=== PATIENT | male | born 1970 | race Caucasian/White ===

== ENCOUNTER → 2021-03-14 08:10 | Outpatient (BNVA) | payer OTHER, SELFPAY | PROVIDERS: PCP Nurse Practitioner Family; Visit Provider Anesthesiology Pain Medicine | DX: G89.29 Other chronic pain (principal); M54.41 Lumbago with sciatica, right side; M54.9 Dorsalgia, unspecified; F31.9 Bipolar disorder, unspecified; F41.1 Generalized anxiety disorder; F43.10 Post-traumatic stress disorder, unspecified; F17.210 Nicotine dependence, cigarettes, uncomplicated | CPT/HCPCS: 99205 ==

== ENCOUNTER → 2021-03-29 10:19 | Outpatient (BNVA) | payer OTHER, SELFPAY | PROVIDERS: PCP Nurse Practitioner Family; Visit Provider Anesthesiology Pain Medicine | DX: G89.29 Other chronic pain (principal); M54.41 Lumbago with sciatica, right side; M54.9 Dorsalgia, unspecified; F31.9 Bipolar disorder, unspecified; F41.1 Generalized anxiety disorder; F43.10 Post-traumatic stress disorder, unspecified; F17.210 Nicotine dependence, cigarettes, uncomplicated | CPT/HCPCS: 99214 ==

== ENCOUNTER → 2021-04-19 14:56 | Outpatient (BNVA) | payer OTHER, SELFPAY | PROVIDERS: PCP Nurse Practitioner Family; Visit Provider Anesthesiology Pain Medicine | DX: G89.29 Other chronic pain (principal); M47.816 Spondylosis without myelopathy or radiculopathy, lumbar region; Z79.891 Long term (current) use of opiate analgesic; F17.210 Nicotine dependence, cigarettes, uncomplicated | CPT/HCPCS: 64493; 64494; 64495; J3490 ==

== ENCOUNTER 2021-09-06 10:29 | Inpatient (IN) | payer OTHER, SELFPAY ==
[2021-09-06 10:34] VITALS: BP 141/83; PULSE 67; RESP 17; TEMP 37.1; O2SAT 96; BMI 22.1
--- NOTE | 2021-09-06 10:48 | W.ED.PSYCHS ---
Documented by User: RAMÓN Kruger 09/06/21 12:07 HPI - Psych General: Chief Complaint: Psychiatric Symptoms Stated Complaint: SI Time Seen by Provider: 09/06/21 10:33 Source: patient Limitations: no limitations History of Present Illness: HPI Narrative: Patient is a 51-year-old male who presents to ED today with a complaint of acute on chronic suicidal ideations. Patient tells me he has felt suicidal pretty much his whole life. He states over the past several days he feels like these symptoms have been worsening. He states if he had the money and the means he would take a gun and put it in his mouth and blow his head off. Patient states he has actively thought of other suicide methods including jumping off a bridge and overdosing but states knowing my luck I would end up paralyzed or a tube down my throat and still alive . Patient does have services through [facility] and sees Dr. Terrazas for his psychiatrist. He states he has diagnoses of depression, anxiety, bipolar. MD complaint: suicidal ideation and feels depressed Onset (ago): day(s) Duration: constant History of same: Yes Associated psychiatric symptoms: depression and suicidal ideation Associated symptoms: Reports depression and suicidal ideation Treatments prior to arrival: none If self harm: admits thoughts of self harm Review of Systems Const: Denies: fever(s) or chills Card: Denies: chest pain, palpitations, lightheadedness or syncope Resp: Denies: dyspnea GI: Denies: abdominal pain, nausea, vomiting or diarrhea Skin/Breast: Denies: rash Neuro: Denies: headache(s) Psych: Reports: anxiety, depression and suicidal ideation [facility] ED PFSH: Medical History Bipolar affective disorder Chronic low back pain Generalized anxiety disorder Psychiatric care PTSD (post-traumatic stress disorder) Family History Mother No known health problems Social History (Updated 06/22/21 @ 08:51 by Jose Roca LPN) Smoking and tobacco status: current every day smoker cigarettes Packs smoked per day: 0.5 Years cigarettes smoked: 35 Quit status (tobacco): has tried quititng Number of times tried to quit tobacco: 5 Second hand smoke exposure: Yes Alcohol intake: never History of recent travel: No Physical Exam Const: COMMON NORMALS: no acute distress, patient oriented x3, alert and well nourished GENERAL APPEARANCE: cooperative and well kempt Resp: COMMON NORMALS: normal respiratory effort and clear to auscultation bilaterally AUSCULTATION: clear to auscultation bilaterally Cardio: COMMON NORMALS: regular rate and regular rhythm RATE: regular rate RHYTHM: regular rhythm Neuro: COMMON NORMALS: patient oriented x3 SENSORIUM/ORIENTATION: Yes alert Psych: COMMON NORMALS: mental status grossly normal, Normal thought process present, cooperative, normal affect, speech normal, activity/motor behavior normal, denies hallucinations and denies homicidal ideation APPEARANCE: Yes grossly normal and Yes well kempt ATTITUDE: Yes calm ACTIVITY/MOTOR BEHAVIOR: Yes appropriate eye contact and No psychomotor agitation SPEECH: Yes normal speech MOOD & AFFECT: Yes euthymic mood THOUGHT PROCESS: Normal thought process present THOUGHT CONTENT: Yes Normal thought content present ATTENTION/CONCENTRATION: Yes attention grossly intact and Yes concentration grossly intact MEMORY/COGNITION: Yes memory grossly intact and Yes cognition grossly intact INSIGHT: Good insight present (Psych) JUDGEMENT: Good judgement present (Psych) Course Consultations: Consultation #1: Dr. Peterson-accepts to NPU Vital Signs: Vital signs: Vital Signs Temperature 98.1 F 09/07/21 22:00 Pulse Rate 98 09/08/21 06:00 Respiratory Rate 16 09/08/21 06:00 Blood Pressure 104/68 09/08/21 06:00 Pulse Oximetry 94 09/08/21 06:00 MDM - Psych Lab Data: Labs: Lab Results 09/06/21 09/06/21 09/06/21 10:50 10:50 11:35 WBC 11.0 10^3/uL H 10 ^3/uL (4.0-10.0) RBC 5.45 10^6/uL H 10 ^6/uL (4.1-5.3) Hgb 14.4 g/dL g/dL (11.7-16.6) Hct 43.9 % % (42.0-52.0) MCV 80.6 fl fl (80-94) MCH 26.4 pg L pg (28.0-34.0) MCHC 32.8 g/dL g/dL (30.0-36.0) RDW 15.1 % % (12.1-15.1) Plt Count 305 10^3/cmm 10^3 /cmm (130-400) MPV 10.5 fL H fL (7.4-10.4) Neut % (Auto) 53.7 % % Lymph % (Auto) 30.4 % % [place] % (Auto) 7.2 % % Eos % (Auto) 7.3 % % Baso % (Auto) 0.9 % % Neut # (Auto) 5.90 10^3/uL 10^3 /uL (1.8-7.7) Lymph # (Auto) 3.3 10^3/uL 10^3/ uL (0.8-4.8) [place] # (Auto) 0.8 10^3/uL 10^3/ uL (0.2-0.9) Eos # (Auto) 0.8 10^3/uL 10^3/ uL (0.0-0.8) Baso # (Auto) 0.1 10^3/uL 10^3/ uL (0.0-0.1) Nucleated RBC % (a uto) 0 % % Nucleated RBCs # 0.0 /100WBC /100W BC Sodium 139 mmol/L mmol/L (136-145) Potassium 4.1 mmol/L mmol/L (3.5-5.1) Chloride 104 mmol/L mmol/L (98-107) Carbon Dioxide 22 mmol/L mmol/L (22-29) Anion Gap 17.1 (5-19) BUN 11 mg/dL mg/dL (6-20) Creatinine 0.8 mg/dL mg/dL (0.7-1.2) GFR Calculation 102.7 mL/min mL/m in (90-130) Glucose 104 mg/dL mg/dL (65-115) Calculated Osmolal ity 288 mOsm/kg mOsm/ kg (285-295) Calcium 8.9 mg/dL mg/dL (8.5-10.5) Total Bilirubin 0.2 mg/dL mg/dL (0.15-1.2) AST 18 U/L U/L (0-40) ALT 22 U/L U/L (0-41) Alkaline Phosphata se 96 IU/L IU/L (40-130) Total Protein 6.7 g/dL g/dL (6.6-8.7) Albumin 4.2 g/dL g/dL (3.5-5.2) Globulin 2.5 g/dL g/dL (1.3-4.6) Salicylates < 0.3 mg/dL L mg/ dL (3-10) Urine Opiates Scre en Negative ng/mL ng /mL (Negative) Acetaminophen < 5.0 ug/mL L ug/ mL (10-30) Ur Barbiturates Sc reen Positive ng/mL H ng/mL (Negative) Ur Phencyclidine S crn Negative ng/mL ng /mL (Negative) Ur Amphetamines Sc reen Negative ng/mL ng /mL (Negative) U Benzodiazepines Scrn Negative ng/mL ng /mL (Negative) Urine Cocaine Scre en Negative ng/mL ng /mL (Negative) U Marijuana (THC) Screen Negative ng/mL ng /mL (Negative) Ethyl Alcohol < 10 mg/dL mg/dL (0-10) Discharge Plan Discharge Patient Disposition: Admitted As Inpatient Admit Provider: Gregorio Peterson Clinical Impression: Suicidal ideation, Depression Condition: Stable Coding Level of Care Code ED Sas Statistical Programmer for Chg Fwd Exam Expanded Problem Focused Documented by User: Jose Alejandro Garcia DO 09/08/21 10:07 HPI - Psych General: Chief Complaint: Psychiatric Symptoms Stated Complaint: SI Time Seen by Provider: 09/06/21 10:33 History of Present Illness: HPI Narrative: Patient seen and reviewed history. Patient still expresses suicidal ideation directly to myself. States he is very depressed. Expresses suicidal ideation of jumping off a bridge. PFSH ED PFSH: Medical History Bipolar affective disorder Chronic low back pain Generalized anxiety disorder Psychiatric care PTSD (post-traumatic stress disorder) Family History Mother No known health problems Social History (Updated 06/22/21 @ 08:51 by Jose Roca LPN) Smoking and tobacco status: current every day smoker cigarettes Packs smoked per day: 0.5 Years cigarettes smoked: 35 Quit status (tobacco): has tried quititng Number of times tried to quit tobacco: 5 Second hand smoke exposure: Yes Alcohol intake: never History of recent travel: No Physical Exam Const: COMMON NORMALS: no acute distress GENERAL APPEARANCE: cooperative and comfortable HENMT: COMMON NORMALS: normocephalic, atraumatic and hearing grossly normal bilaterally HEAD & SCALP: normocephalic and atraumatic Neck/C-Spine: COMMON NORMALS: no JVD Resp: COMMON NORMALS: normal respiratory effort, No retractions, No use of accessory muscles and clear to auscultation bilaterally AUSCULTATION: clear to auscultation bilaterally Cardio: COMMON NORMALS: no JVD, regular rate, regular rhythm and No murmurs present (Cardio) RATE: regular rate RHYTHM: regular rhythm Extremity: COMMON NORMALS: normal to inspection, capillary refill normal, no clubbing, cyanosis or edema, no calf tenderness and no pedal edema Skin: COMMON NORMALS: no rashes or lesions noted GENERAL SKIN EXAM: no rashes or lesions noted Course Vital Signs: Vital signs: Vital Signs Temperature 98.1 F 09/07/21 22:00 Pulse Rate 98 09/08/21 06:00 Respiratory Rate 16 09/08/21 06:00 Blood Pressure 104/68 09/08/21 06:00 Pulse Oximetry 94 09/08/21 06:00 MDM - Psych MDM Narrative: Medical decision making narrative: Chart reviewed and patient discussed with midlevel. Agree with assessment and plan. Lab Data: Labs: Lab Results 09/06/21 09/06/21 09/06/21 10:50 10:50 11:35 WBC 11.0 10^3/uL H 10 ^3/uL (4.0-10.0) RBC 5.45 10^6/uL H 10 ^6/uL (4.1-5.3) Hgb 14.4 g/dL g/dL (11.7-16.6) Hct 43.9 % % (42.0-52.0) MCV 80.6 fl fl (80-94) MCH 26.4 pg L pg (28.0-34.0) MCHC 32.8 g/dL g/dL (30.0-36.0) RDW 15.1 % % (12.1-15.1) Plt Count 305 10^3/cmm 10^3 /cmm (130-400) MPV 10.5 fL H fL (7.4-10.4) Neut % (Auto) 53.7 % % Lymph % (Auto) 30.4 % % [place] % (Auto) 7.2 % % Eos % (Auto) 7.3 % % Baso % (Auto) 0.9 % % Neut # (Auto) 5.90 10^3/uL 10^3 /uL (1.8-7.7) Lymph # (Auto) 3.3 10^3/uL 10^3/ uL (0.8-4.8) [place] # (Auto) 0.8 10^3/uL 10^3/ uL (0.2-0.9) Eos # (Auto) 0.8 10^3/uL 10^3/ uL (0.0-0.8) Baso # (Auto) 0.1 10^3/uL 10^3/ uL (0.0-0.1) Nucleated RBC % (a uto) 0 % % Nucleated RBCs # 0.0 /100WBC /100W BC Sodium 139 mmol/L mmol/L (136-145) Potassium 4.1 mmol/L mmol/L (3.5-5.1) Chloride 104 mmol/L mmol/L (98-107) Carbon Dioxide 22 mmol/L mmol/L (22-29) Anion Gap 17.1 (5-19) BUN 11 mg/dL mg/dL (6-20) Creatinine 0.8 mg/dL mg/dL (0.7-1.2) GFR Calculation 102.7 mL/min mL/m in (90-130) Glucose 104 mg/dL mg/dL (65-115) Calculated Osmolal ity 288 mOsm/kg mOsm/ kg (285-295) Calcium 8.9 mg/dL mg/dL (8.5-10.5) Total Bilirubin 0.2 mg/dL mg/dL (0.15-1.2) AST 18 U/L U/L (0-40) ALT 22 U/L U/L (0-41) Alkaline Phosphata se 96 IU/L IU/L (40-130) Total Protein 6.7 g/dL g/dL (6.6-8.7) Albumin 4.2 g/dL g/dL (3.5-5.2) Globulin 2.5 g/dL g/dL (1.3-4.6) Salicylates < 0.3 mg/dL L mg/ dL (3-10) Urine Opiates Scre en Negative ng/mL ng /mL (Negative) Acetaminophen < 5.0 ug/mL L ug/ mL (10-30) Ur Barbiturates Sc reen Positive ng/mL H ng/mL (Negative) Ur Phencyclidine S crn Negative ng/mL ng /mL (Negative) Ur Amphetamines Sc reen Negative ng/mL ng /mL (Negative) U Benzodiazepines Scrn Negative ng/mL ng /mL (Negative) Urine Cocaine Scre en Negative ng/mL ng /mL (Negative) U Marijuana (THC) Screen Negative ng/mL ng /mL (Negative) Ethyl Alcohol < 10 mg/dL mg/dL (0-10) Discharge Plan Discharge Patient Disposition: Admitted As Inpatient Admit Provider: Gregorio Peterson Clinical Impression: Suicidal ideation, Depression Condition: Stable Coding Level of Care Code ED Sas Statistical Programmer for Chuckie Fwd Exam Expanded Problem Focused
[2021-09-06 11:01] LABS: Basophils # 0.1 10^3/uL (0.0-0.1); Basophils % 0.9 %; Eosinophils # 0.8 10^3/uL (0.0-0.8); Eosinophils % 7.3 %; Hematocrit 43.9 % (42.0-52.0); Hemoglobin 14.4 g/dL (11.7-16.6); Lymphocytes # 3.3 10^3/uL (0.8-4.8); Lymphocytes % 30.4 %; Mean Corpuscular HGB Conc 32.8 g/dL (30.0-36.0); Mean Corpuscular Hemoglobin 26.4 pg (28.0-34.0); Mean Corpuscular Volume 80.6 fl (80-94); Mean Platelet Volume 10.5 fL (7.4-10.4); Monocytes # 0.8 10^3/uL (0.2-0.9); Monocytes % 7.2 %; Neutrophils % 53.7 %; Nucleated Red Blood Cells % 0 %; Platelet Count 305 10^3/cmm (130-400); Red Blood Count 5.45 10^6/uL (4.1-5.3); Red Cell Distribution Width 15.1 % (12.1-15.1)
[2021-09-06 11:20] LABS: Alanine Aminotransferase 22 U/L (0-41); Albumin Level 4.2 g/dL (3.5-5.2); Alkaline Phosphatase 96 IU/L (40-130); Anion Gap 17.1 (5-19); Aspartate Amino Transferase 18 U/L (0-40); Blood Urea Nitrogen 11 mg/dL (6-20); Calcium 8.9 mg/dL (8.5-10.5); Carbon Dioxide 22 mmol/L (22-29); Chloride 104 mmol/L (98-107); Globulin 2.5 g/dL (1.3-4.6); Glomerular Filtration Rate 102.7 mL/min (90-130); Glucose 104 mg/dL (65-115); Osmolality Calculated 288 mOsm/kg (285-295); Potassium 4.1 mmol/L (3.5-5.1); Sodium 139 mmol/L (136-145); Total Bilirubin 0.2 mg/dL (0.15-1.2); Total Protein 6.7 g/dL (6.6-8.7)
[2021-09-06 11:23] LABS: Acetaminophen < 5.0 ug/mL (10-30); Alcohol Level < 10 mg/dL (0-10); Salicylate < 0.3 mg/dL (3-10)
[2021-09-06 12:44] LABS: Amphetamines Screen Urine Negative (Negative); Barbiturates Screen Urine Positive (Negative); Benzodiazepines Screen Urine Negative (Negative); Cocaine Screen Urine Negative (Negative); Opiate Screen Urine Negative (Negative); PCP Screen Urine Negative (Negative); THC Screen Urine Negative (Negative)
--- NOTE | 2021-09-06 13:45 | PC.PHAR ---
pt states he takes care of his own medications-pt state he takes the medications entered-[facility] [place] [facility]
[2021-09-06] MEDS: nicotine 21 mg Patch 1 PATCH TRANSDERMA (14:59)
[2021-09-06 20:34] VITALS: BP 121/77; PULSE 58; RESP 18; O2SAT 99
[2021-09-07 06:00] VITALS: BP 101/69; PULSE 88; RESP 16; O2SAT 98
[2021-09-07] MEDS: acetaminophen 325 mg Tablet 650 MG PO ×2 (06:41→10:13)
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
[2021-09-07] MEDS: nicotine 21 mg Patch 1 PATCH TRANSDERMA (09:13)
[2021-09-07] MEDS: famotidine 20 mg Tablet PO (11:12)
--- NOTE | 2021-09-07 12:57 | NPU.GN ---
[facility] Topic: Self Care Bingo/ Crisis Plan Work Sheet General Mood of Group: Govind did attend and participate in group today. His demeanour was good and he was social in group with this rewriter and others. Govind is already linked with [facility] for therapy , medication provider, and [facility] services with a pulp and paper tester.
[2021-09-07 14:00] VITALS: BP 112/66; PULSE 61; RESP 17; TEMP 36.3; O2SAT 98
[2021-09-07] MEDS: atorvastatin 40 mg Tablet 20 MG PO (21:03)
[2021-09-07] MEDS: prazosin 1 mg Capsule 2 MG PO (21:04)
[2021-09-07 22:00] VITALS: BP 98/74; PULSE 85; RESP 18; TEMP 36.7
[2021-09-07] MEDS: hyDROXYzine 25 mg Capsule 50 MG PO (22:54)
[2021-09-07] MEDS: trazodone 50 mg Tablet PO (22:54)
[2021-09-08 06:00] VITALS: BP 104/68; PULSE 98; RESP 16; O2SAT 94
[2021-09-08] MEDS: duloxetine 30 mg Capsule PO (06:51)
[2021-09-08] MEDS: doxepin 25 mg Capsule PO (08:29)
[2021-09-08] MEDS: nicotine 21 mg Patch 1 PATCH TRANSDERMA (08:30)
[2021-09-08] MEDS: famotidine 20 mg Tablet PO (08:30)
[2021-09-08] MEDS: ARIPiprazole 10 mg Tablet PO (11:31)
--- NOTE | 2021-09-08 12:34 | NPU.GN ---
[facility] Topic:Positive Thinking / Positive Affirmations General Mood of Group : Govind attended group and participated with others and was social. He seemed to be in a great mood and stable.
[2021-09-08 14:00] VITALS: BP 107/71; PULSE 83; RESP 18; TEMP 36.1; O2SAT 98
--- NOTE | 2021-09-08 17:20 | W.PM.NPUPNS ---
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 He denies any side effects from the medication. We once again discussed the plan to titrate the Lamictal up to 100 mg over the next 3 weeks then he can be reevaluated by his outpatient doctor. He reports that he is eating okay and sleeping fine and looks forward to being able to manage this outpatient. Mental Status Exam MSE Comments: This is a slender white male with hospital scrubs on with limited grooming and eye contact. No abnormal movements suffer significant psychomotor retardation. Cooperative exam in no acute distress. Speech was decreased rate and volume. Mood described as a little better, affect congruent. Thought process organized. Thought content: Patient endorsed suicidal thinking denied homicidal thinking. There were no delusions reported or noted, he denied any auditory or visual hallucinations. Attention and concentration were limited and memory was mostly reliable but none were formally tested. He is alert and oriented x3. Insight and judgment are limited, impulse control is limited. Vitals/I&O/Wt Last Vital Signs Temp 97.0 F L 09/08/21 14:00 Pulse 91 09/08/21 20:00 Resp 16 09/08/21 20:00 BP 111/74 09/08/21 20:00 Pulse Ox 96 09/08/21 20:00 Data NPU : 09/06/21 10:50 09/06/21 10:50 A&P Additional A&P Information (1) Suicidal ideation: (2) Depression: (3) Nicotine dependence, cigarettes, uncomplicated: (4) Generalized anxiety disorder: (5) Major depressive disorder, recurrent severe without psychotic features: (6) Post-traumatic stress disorder, chronic: (7) Chronic low back pain: Additional A&P Information This is a 51-year-old white male with a long history of trauma and depression with significant mood dysregulation which is likely reflective of complex PTSD, could represent some cluster B pathology and is unlikely to be bipolar disorder continues to have emotional dysregulation that is impairing who presents with suicidal thoughts having been off his medication for several days and open to restarting medication and possibly adding a mood stabilizer. 1. Continue current medication. 2. Continue every 15 minute checks for safety. 3. Encourage individual, group and milieu therapies. Involuntary Hold Information 96 Hour Hold: 96 Hour Involuntary Admission: Yes 96 Hour Hold Ending Date: 09/12/21 96 Hour Hold Ending Time: 12:55 Attestations NPU Medical Necessity Statement*: Inpatient hospitalization is medically necessary and the clinically appropriate intervention at this time. We will monitor medication to make changes as indicated. Likely length of stay 2-4 days. Coding Level of Care Code Acute Taker Away for Chuckie Locke
[2021-09-08 20:00] VITALS: BP 111/74; PULSE 91; RESP 16; O2SAT 96
[2021-09-08] MEDS: prazosin 1 mg Capsule 2 MG PO (20:15)
[2021-09-08] MEDS: atorvastatin 40 mg Tablet 20 MG PO (20:15)
[2021-09-08] MEDS: trazodone 50 mg Tablet PO (20:21)
[2021-09-08] MEDS: hyDROXYzine 25 mg Capsule 50 MG PO (20:21)
[2021-09-08] MEDS: quetiapine 100 mg Tablet PO (23:27)
--- NOTE | 2021-09-09 01:26 | PC.NURSE ---
Patient in bed, awake, resting quietly at start of shift. Calm and cooperative. Denied any SI/HI or AVH. Stated that he had spoken with Dr about resuming Seroquel and increasing to 100 mg QHS. Confirmed this with and received order for Seroquel 100 mg PO QHS. Did state that he is hoping to discharge in morning and that his car is at [employer] and will not need a ride. Patient up breifly in evening to watch TV. Has been in bed resting with eyes closed most of night. No signs of distress noted.
[2021-09-09 06:00] VITALS: BP 111/74; PULSE 91; RESP 16; O2SAT 96
[2021-09-09] MEDS: duloxetine 30 mg Capsule PO (06:15)
[2021-09-09] MEDS: ARIPiprazole 10 mg Tablet PO (08:58)
[2021-09-09] MEDS: lamoTRIgine 25 mg Tablet PO (08:59)
[2021-09-09] MEDS: famotidine 20 mg Tablet PO (08:59)
[2021-09-09] MEDS: doxepin 25 mg Capsule PO (08:59)
[2021-09-09] MEDS: nicotine 21 mg Patch 1 PATCH TRANSDERMA (08:59)
[2021-09-09] MEDS: acetaminophen 325 mg Tablet 650 MG PO (09:02)
--- NOTE | 2021-09-09 10:46 | NPU.GN ---
[facility] Group Topic: Good Secrets Vs. Bad Secrets Psycho Therapy General Mood of Group: Govind did attend and participate in group today. He was getting frustrated with two female patients that were being loud and distracting group therapy. This advertising writer redirected the patients in group at least 4 times to get back to the group therapy activity. Govind did apologize to this advertising writer for the others behaviors in group and told this advertising writer that he enjoyed this writers groups.
[2021-09-09] MEDS: ibuprofen 600 mg Tablet PO (11:23)
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
[2021-09-09 14:32] VITALS: BP 111/74; PULSE 91; RESP 16; O2SAT 96
== END 2021-09-09 18:38 | disposition home or self-care (01) | DRG 885 ==
LOC: ER 11:44 → NP 09-07 06:32
PROVIDERS: Physician Assistant; Admitting Provider Psychiatry & Neurology Psychiatry; Emergency Provider Family Medicine; PCP Nurse Practitioner Family; Visit Provider Psychiatry & Neurology Psychiatry
DX: F33.2 Major depressive disorder, recurrent severe without psychotic features (principal); R45.851 Suicidal ideations; F41.1 Generalized anxiety disorder; G89.29 Other chronic pain; M54.50 Low back pain, unspecified; F43.12 Post-traumatic stress disorder, chronic; F17.210 Nicotine dependence, cigarettes, uncomplicated; F60.89 Other specific personality disorders
CPT/HCPCS: 36415; 80053; 80306; 80307; 85025; 97150; 97165; 99285

== ENCOUNTER → 2021-12-20 11:09 | Outpatient (BNVA) | payer SELFPAY | PROVIDERS: PCP Nurse Practitioner Family; Visit Provider Psychiatry & Neurology Psychiatry | DX: F41.1 Generalized anxiety disorder (principal); Z79.899 Other long term (current) drug therapy | CPT/HCPCS: 80061; 83036 ==

== ENCOUNTER → 2022-01-09 13:08 | Outpatient (BNVA) | payer OTHER, SELFPAY ==
[2021-12-21 09:17] VITALS: BP 127/88; BMI 22.2
== END ==
PROVIDERS: PCP Nurse Practitioner Family; Visit Provider Psychiatry & Neurology Psychiatry
DX: F41.1 Generalized anxiety disorder (principal); F33.2 Major depressive disorder, recurrent severe without psychotic features; F43.12 Post-traumatic stress disorder, chronic; F17.210 Nicotine dependence, cigarettes, uncomplicated
CPT/HCPCS: 99213

== ENCOUNTER → 2022-01-25 15:04 | Outpatient (BNVA) | payer OTHER, SELFPAY ==
[2021-12-21 09:17] VITALS: BP 127/88; BMI 22.2
== END ==
PROVIDERS: PCP Nurse Practitioner Family; Visit Provider Psychiatry & Neurology Psychiatry
DX: F17.210 Nicotine dependence, cigarettes, uncomplicated (principal); F41.1 Generalized anxiety disorder; F33.2 Major depressive disorder, recurrent severe without psychotic features; F43.12 Post-traumatic stress disorder, chronic
CPT/HCPCS: 99213

== ENCOUNTER 2022-02-06 13:38 | Emergency (ER) | payer OTHER, SELFPAY ==
[2021-12-21 09:17] VITALS: BP 127/88; BMI 22.2
[2022-02-06 13:59] VITALS: BP 158/109; PULSE 88; RESP 16; TEMP 36.6; O2SAT 98; BMI 22.8
--- NOTE | 2022-02-06 14:21 | ED.C_ITS ---
HPI - Psych General: Chief Complaint: Psychiatric Symptoms Stated Complaint: anger issues Time Seen by Provider: 02/06/22 14:10 Source: patient Mode of arrival: ambulatory Limitations: no limitations History of Present Illness: 51-year-old male presents emergency room complaining of being angry. He said explosive outbursts in the past he has several things that have no argument recently but on the verge of having anger outbursts he had an interaction with some intoxicated people he had a relative w ho is been contacting him that annoyed him. He also relates different world events that are ongoing caused him a great deal of stress simply because he is aware of them. He is not suicidal he states he was having suicidal thoughts about a year ago but none currently he is not particularly homicidal at this time patient states he feels like he is going to explode out of anger. complaint: other (explosive) Onset (ago): day(s) Duration: constant History of same: Yes Relieving factors: other (Avoidance) Exacerbating factors: other (Various social interactions) Associated psychiatric symptoms: other Associated symptoms: Deny auditory hallucinations, visual hallucinations, delusions, depression, homicidal ideation, suicidal ideation or racing thoughts Treatments prior to arrival: none Details of plan: Patient states he feels like he is about to explode repeatedly denied any suicidal homicidal ideation. Review of Systems Const: Denies: fever(s), chills, body aches, change in appetite, fatigue or malaise ENMT: Denies: throat pain, ear or mastoid pain, nasal discharge or nasal congestion Card: Denies: chest pain, edema, dyspnea on exertion or orthopnea Resp: Denies: dyspnea, productive cough or non-productive cough GI: Denies: abdominal pain, nausea, vomiting, hematemesis, coffee ground emesis, diarrhea, constipation, bloating, hematochezia or melena : Denies: flank pain, dysuria, urinary frequency or urinary urgency Skin/Breast: Denies: rash or pruritus Psych: Reports: irritability; Denies: anxiety, depression, visual hallucinations, auditory hallucinations, suicidal ideation or homicidal ideation [facility] ED PFSH: Medical History Bipolar affective disorder Chronic low back pain Generalized anxiety disorder Psychiatric care PTSD (post-traumatic stress disorder) Family History Mother No known health problems Social History Smoking and tobacco status: current every day smoker cigarettes Packs smoked per day: 1 Years cigarettes smoked: 36 Quit status (tobacco): has tried quititng Number of times tried to quit tobacco: 6 Second hand smoke exposure: Yes (Sometimes.) Alcohol intake: never History of recent travel: No Physical Exam Const: COMMON NORMALS: no acute distress GENERAL APPEARANCE: cooperative and comfortable ORIENTATION/CONSCIOUSNESS: Yes awake, Yes oriented to person, Yes oriented to place and Yes oriented to time HENMT: COMMON NORMALS: normocephalic, atraumatic and hearing grossly normal bilaterally HEAD & SCALP: normocephalic and atraumatic Resp: COMMON NORMALS: normal respiratory effort, No retractions, No use of accessory muscles and clear to auscultation bilaterally AUSCULTATION: clear to auscultation bilaterally Cardio: COMMON NORMALS: regular rate, regular rhythm and No murmurs present (Cardio) RATE: regular rate RHYTHM: regular rhythm GI: COMMON NORMALS: Soft to palpation and No hepatosplenomegaly present AUSCULTATION: Yes normoactive bowel sounds PALPATION: Yes Soft to palpation, No Tenderness to palpation present (GI), No Guarding due to palpation present (GI) and Yes No hepatosplenomegaly present Neuro: SENSORIUM/ORIENTATION: Yes oriented to person, Yes oriented to place and Yes oriented to time Psych: THOUGHT CONTENT: No delusions Skin: COMMON NORMALS: no rashes or lesions noted GENERAL SKIN EXAM: no rashes or lesions noted Course Vital Signs: Vital signs: Vital Signs Temperature 97.8 F 02/06/22 17:09 Pulse Rate 84 02/06/22 17:09 Respiratory Rate 16 02/06/22 17:09 Blood Pressure 149/79 02/06/22 17:09 Pulse Oximetry 97 02/06/22 17:09 MDM - Psych Medical Decision Making No acute homicidal or suicidal ideation. Will discharge home hydroxyzine to use for anxiety have him set up for outpatient follow-up through [facility] where he has been seen before. We will try to get a hold to [facility] to make use of the crisis intervention. Discussed Dr. Acevedo he concurs. Medical Records I reviewed the patient's medical records. Lab Data I reviewed the patient's lab results. : 02/06/22 14:44 02/06/22 14:44 Laboratory Results WBC 16.0 10^3/uL (4.0-10.0) H 02/06/22 14:44 RBC 5.30 10^6/uL (4.1-5.3) 02/06/22 14:44 Hgb 13.8 g/dL (11.7-16.6) 02/06/22 14:44 Hct 42.1 % (42.0-52.0) 02/06/22 14:44 MCV 79.4 fl (80-94) L 02/06/22 14:44 MCH 26.0 pg (28.0-34.0) L 02/06/22 14:44 MCHC 32.8 g/dL (30.0-36.0) 02/06/22 14:44 RDW 15.7 % (12.1-15.1) H 02/06/22 14:44 Plt Count 353 10^3/cmm (130-400) 02/06/22 14:44 MPV 10.2 fL (7.4-10.4) 02/06/22 14:44 Neut % (Auto) 66.1 % 02/06/22 14:44 Lymph % (Auto) 21.9 % 02/06/22 14:44 [place] % (Auto) 5.5 % 02/06/22 14:44 Eos % (Auto) 5.3 % 02/06/22 14:44 Baso % (Auto) 0.6 % 02/06/22 14:44 Neut # (Auto) 10.53 10^3/uL (1.8-7.7) H 02/06/22 14:44 Lymph # (Auto) 3.5 10^3/uL (0.8-4.8) 02/06/22 14:44 [place] # (Auto) 0.9 10^3/uL (0.2-0.9) 02/06/22 14:44 Eos # (Auto) 0.9 10^3/uL (0.0-0.8) H 02/06/22 14:44 Baso # (Auto) 0.1 10^3/uL (0.0-0.1) 02/06/22 14:44 Nucleated RBC % (auto) 0 % 02/06/22 14:44 Nucleated RBCs # 0.0 /100WBC 02/06/22 14:44 Sodium 140 mmol/L (136-145) 02/06/22 14:44 Potassium 3.8 mmol/L (3.5-5.1) 02/06/22 14:44 Chloride 106 mmol/L (98-107) 02/06/22 14:44 Carbon Dioxide 22 mmol/L (22-29) 02/06/22 14:44 Anion Gap 15.8 (5-19) 02/06/22 14:44 BUN 7 mg/dL (6-20) 02/06/22 14:44 Creatinine 0.7 mg/dL (0.7-1.2) 02/06/22 14:44 GFR Calculation 119.9 mL/min (90-130) 02/06/22 14:44 Glucose 131 mg/dL (65-115) H 02/06/22 14:44 Calculated Osmolality 290 mOsm/kg (285-295) 02/06/22 14:44 Calcium 9.4 mg/dL (8.5-10.5) 02/06/22 14:44 Total Bilirubin 0.2 mg/dL (0.15-1.2) 02/06/22 14:44 AST 19 U/L (0-40) 02/06/22 14:44 ALT 18 U/L (0-41) 02/06/22 14:44 Alkaline Phosphatase 94 IU/L (40-130) 02/06/22 14:44 Total Protein 6.5 g/dL (6.6-8.7) L 02/06/22 14:44 Albumin 4.5 g/dL (3.5-5.2) 02/06/22 14:44 Globulin 2.0 g/dL (1.3-4.6) 02/06/22 14:44 Urine Color Straw (Yellow) 02/06/22 14:42 Urine Appearance Clear (CLEAR) 02/06/22 14:42 Urine pH 7 (5-7) 02/06/22 14:42 Ur Specific [place] 1.005 (1.005-1.030) 02/06/22 14:42 Urine Protein Neg (Negative) 02/06/22 14:42 Urine Glucose (UA) Norm (Normal) 02/06/22 14:42 Urine Ketones Negative (Negative) 02/06/22 14:42 Urine Blood Neg (Negative) 02/06/22 14:42 Urine Nitrate Negative (Negative) 02/06/22 14:42 Urine Bilirubin Neg (Negative) 02/06/22 14:42 Urine Urobilinogen Norm mg/dL (Negative) 02/06/22 14:42 Ur Leukocyte Esterase Negative (Negative) 02/06/22 14:42 Salicylates 0.8 mg/dL (3-10) L 02/06/22 14:44 Acetaminophen < 5.0 ug/mL (10-30) L 02/06/22 14:44 Discharge Plan Discharge Patient Disposition: Home Clinical Impression: Acute anxiety, Bipolar affective disorder Condition: Stable Prescriptions: New hydroxyzine HCl 25 mg tablet 25 mg PO Q8H PRN (Reason: anxiety) Qty: 14 0RF No Action epinephrine [EpiPen] 0.3 mg/0.3 mL auto-injector 0.3 mg IM Q10M PRN (Reason: Allergic Reaction) 0RF Rx Instructions: for 2 doses cholecalciferol (vitamin D3) 50 mcg (2,000 unit) capsule 100 mcg PO DAILY 0RF gabapentin 600 mg tablet 600 mg PO TID 0RF cyclobenzaprine 10 mg tablet 10 mg PO TID 0RF meloxicam [Mobic] 15 mg tablet 15 mg PO DAILY 0RF docusate sodium [Colace] 100 mg capsule 100 mg PO TID 0RF duloxetine 30 mg capsule,delayed release(DR/EC) 30 mg PO QAM 30 Days Qty: 30 2RF prazosin 2 mg capsule 2 mg PO BEDTIME 30 Days Qty: 30 2RF quetiapine 100 mg tablet 100 mg PO BEDTIME 30 Days Qty: 30 2RF famotidine 20 mg tablet 20 mg PO BID 30 Days Qty: 60 1RF ondansetron HCl 4 mg tablet 4 mg PO Q8H 0RF sumatriptan 20 mg/actuation [place],Non-Aerosol 20 mg INTRANASAL Q2H PRN (Reason: Migraine Headache) 0RF Rx Instructions: administer into one nostril as a single dose; if 2nd dose needed,administer into other nostril after at least 2 hrs, NTE 2 doses (40 mg) per episode oxycodone 10 mg tablet 10 mg PO TID 0RF trazodone 50 mg tablet 100 mg PO BEDTIME PRN (Reason: insomnia) 0RF doxepin 25 mg capsule 25 mg PO QAM 0RF Lamictal 100 mg tablet 100 mg PO QAM 0RF aripiprazole 10 mg tablet 10 mg PO QAM 0RF Discharge Orders: Discharge ED (Routine); Ordered 02/06/22 Ordered By: Jose Alejandro Garcia Discharge Diet: Usual diet Discharge Activity: Resume usual activity Patient Instructions: Opioid Safety Activity Restrictions/Additional Instructions: Follow-up 3 [facility]. Coding Level of Care Code ED Inventory Transcriber for Chuckie Fwgilda Exam Detailed
[2022-02-06 15:11] LABS: Basophils # 0.1 10^3/uL (0.0-0.1); Basophils % 0.6 %; Eosinophils # 0.9 10^3/uL (0.0-0.8); Eosinophils % 5.3 %; Hematocrit 42.1 % (42.0-52.0); Hemoglobin 13.8 g/dL (11.7-16.6); Lymphocytes # 3.5 10^3/uL (0.8-4.8); Lymphocytes % 21.9 %; Mean Corpuscular HGB Conc 32.8 g/dL (30.0-36.0); Mean Corpuscular Volume 79.4 fl (80-94); Mean Platelet Volume 10.2 fL (7.4-10.4); Monocytes # 0.9 10^3/uL (0.2-0.9); Monocytes % 5.5 %; Neutrophils # 10.53 10^3/uL (1.8-7.7); Neutrophils % 66.1 %; Nucleated Red Blood Cells % 0 %; Platelet Count 353 10^3/cmm (130-400); Red Cell Distribution Width 15.7 % (12.1-15.1)
[2022-02-06 15:28] LABS: Alanine Aminotransferase 18 U/L (0-41); Albumin Level 4.5 g/dL (3.5-5.2); Alkaline Phosphatase 94 IU/L (40-130); Anion Gap 15.8 (5-19); Aspartate Amino Transferase 19 U/L (0-40); Blood Urea Nitrogen 7 mg/dL (6-20); Calcium 9.4 mg/dL (8.5-10.5); Carbon Dioxide 22 mmol/L (22-29); Chloride 106 mmol/L (98-107); Glomerular Filtration Rate 119.9 mL/min (90-130); Glucose 131 mg/dL (65-115); Osmolality Calculated 290 mOsm/kg (285-295); Potassium 3.8 mmol/L (3.5-5.1); Salicylate 0.8 mg/dL (3-10); Sodium 140 mmol/L (136-145); Total Bilirubin 0.2 mg/dL (0.15-1.2); Total Protein 6.5 g/dL (6.6-8.7)
[2022-02-06 15:29] LABS: Acetaminophen < 5.0 ug/mL (10-30)
[2022-02-06 15:37] LABS: Add Urine Microscopic? NO; Charge for UA Resulting for Rev
[2022-02-06] MEDS: nicotine 21 mg Patch 1 PATCH TRANSDERMA (15:37)
[2022-02-06 16:03] LABS: Bilirubin Urine Neg (Negative); Blood Urine Neg (Negative); Glucose Urine UA Norm (Normal); Ketones Urine Negative (Negative); Leukocyte Esterase Urine Negative (Negative); Nitrate Urine Negative (Negative); Protein Urine Neg (Negative); Specific Gravity, Urine 1.005 (1.005-1.030); Urine Appearance Clear (CLEAR); Urine Color Straw (Yellow); Urobilinogen Urine Norm (Negative); pH Urine 7 (5-7)
[2022-02-06 16:04] VITALS: BP 149/79; PULSE 84; RESP 16; TEMP 36.6; O2SAT 97
--- NOTE | 2022-02-06 16:08 | PC.PHAR ---
pt states he takes care of his own medications-pt states he is no longer taking atorvastatin 20mg hs,propranolol er 60mg daily filled11/24/21 90d/s or [id number]-[id number] [id number] last filled 12/12/21-[facility]-notes are made in the pharmacy comments
[2022-02-06 17:09] VITALS: BP 149/79; PULSE 84; RESP 16; TEMP 36.6; O2SAT 97
== END 2022-02-06 17:11 | disposition home or self-care (01) ==
PROVIDERS: Emergency Provider Family Medicine
DX: F41.9 Anxiety disorder, unspecified (principal); F31.89 Other bipolar disorder; F43.10 Post-traumatic stress disorder, unspecified; F17.210 Nicotine dependence, cigarettes, uncomplicated
CPT/HCPCS: 80053; 80307; 81003; 85025; 99283

== ENCOUNTER → 2022-02-28 15:19 | Outpatient (BNVA) | payer OTHER, SELFPAY ==
[2021-12-21 09:17] VITALS: BP 127/88; BMI 22.2
== END ==
PROVIDERS: Visit Provider Psychiatry & Neurology Psychiatry
DX: F41.1 Generalized anxiety disorder (principal); F33.2 Major depressive disorder, recurrent severe without psychotic features; F43.12 Post-traumatic stress disorder, chronic; F17.210 Nicotine dependence, cigarettes, uncomplicated
CPT/HCPCS: 99214

== ENCOUNTER → 2022-04-05 10:32 | Outpatient (BNVA) | payer OTHER, SELFPAY ==
[2021-12-21 09:17] VITALS: BP 127/88; BMI 22.2
== END ==
PROVIDERS: Visit Provider Social Worker
DX: F41.1 Generalized anxiety disorder (principal); F33.2 Major depressive disorder, recurrent severe without psychotic features; F43.12 Post-traumatic stress disorder, chronic
CPT/HCPCS: 90837; 90834

== ENCOUNTER → 2022-04-10 10:52 | Outpatient (BNVA) | payer OTHER, SELFPAY ==
[2021-12-21 09:17] VITALS: BP 127/88; BMI 22.2
== END ==
PROVIDERS: Visit Provider Psychiatry & Neurology Psychiatry
DX: F41.1 Generalized anxiety disorder (principal); F33.2 Major depressive disorder, recurrent severe without psychotic features; F43.12 Post-traumatic stress disorder, chronic; F17.210 Nicotine dependence, cigarettes, uncomplicated
CPT/HCPCS: 99213

== ENCOUNTER 2023-01-16 17:57 | Emergency (ER) | payer OTHER, SELFPAY ==
[2021-12-21 09:17] VITALS: BP 127/88; BMI 22.2
[2023-01-16 18:04] VITALS: BP 130/82; PULSE 93; RESP 16; TEMP 36.8; O2SAT 98; BMI 22.1
--- NOTE | 2023-01-16 22:14 | CTR_ITS ---
PROCEDURE INFORMATION: Exam: CT Head Without Contrast Exam date and time: 01/16/2023 10:28 PM Age: 52 years old Clinical indication: Pain; Headache; Patient HX: [place] with n/v. History of migraines. ; Additional info: Worst migraine ever TECHNIQUE: Imaging protocol: Computed tomography of the head without contrast. Radiation optimization: All CT scans at this facility use at least one of these dose optimization techniques: automated exposure control; mA and/or kV adjustment per patient size (includes targeted exams where dose is matched to clinical indication); or iterative reconstruction. REPORTING DATA: Count of CT and Cardiac NM exams in prior 12 months: This patient has received 0 known CTs and 0 known cardiac nuclear medicine studies in the 12 months prior to the current study. COMPARISON: No relevant prior studies available. RADIATION DOSE METRICS: Total DLP (mGy-cm): 1069.58 FINDINGS: Brain: No acute intra- or extra axial fluid collections are identified. The basal cisterns are patent. No mass effect or midline shift is seen. The abel-white matter differentiation is normal. Periventricular hypoattenuation are nonspecific but likely the sequela of chronic small vessel ischemic disease. Cerebral ventricles: Moderate cerebral volume loss and ex vacuo dilation of the ventricles.. Paranasal sinuses: Scattered opacification in the ethmoid air cells. Near-complete opacification of the visualized left maxillary sinus. Near-complete opacification of the left sphenoid sinus. Mild mucosal thickening in the visualized right maxillary sinus. Moderate mucosal thickening in the right sphenoid sinus. The frontal sinuses are under developed. No air-fluid levels. Mastoid air cells: The mastoid air cells appear grossly clear. Orbital cavities: The visualized portions of the orbits appear normal. Bones/joints: No acute calvarial fracture is identified. Soft tissues: No soft tissue abnormalities identified. Vasculature: There are atherosclerotic calcifications of the carotid siphons. CT/CT head wo con* [id number] IMPRESSION: No evidence of acute intracranial hemorrhage, mass effect, or midline shift.
--- NOTE | 2023-01-16 22:15 | ED_ITS ---
HPI - Headache General: Chief Complaint: Headache Stated Complaint: headaches Time Seen by Provider: 01/16/23 21:26 History of Present Illness: Patient is a 52-year-old male comes to the ED with migraine headache. Patient has a history of migraines and is currently in the process of getting set up with neurologist here at [facility]. Headache started approximately 4 days ago. It started as a typical migraine with halo type vision, headache and pain in back of head, nausea/vomiting, photophobia. Lights and noise make headache worse. Over the last 2 days his headache is gotten more severe and its moved to the front of his head bilaterally. He rates his headache currently a 9 out of 10. He states that this is the worst migraine he has ever had and its not acting like previous migraines. Denies any neurodeficits such as numbness tingling or weakness to 1 side of face or body or any other vision changes. Denies fevers, chest pain, shortness of breath, abdominal pain. Associated symptoms: Reports nausea and vomiting; Deny chest pain, fever(s) or rash Review of Systems Const: Denies: fever(s), chills or fatigue Eyes: Reports: photophobia; Denies: change in vision or eye discomfort ENMT: Denies: throat pain, odynophagia, nasal discharge or nasal congestion Card: Denies: chest pain, palpitations, edema, swelling of feet/ankles, dyspnea on exertion or orthopnea Resp: Denies: dyspnea, productive cough or non-productive cough GI: Reports: nausea and vomiting; Denies: abdominal pain, diarrhea, constipation or hematochezia : Denies: flank pain, difficulty urinating, dysuria or hematuria Musc: Denies: neck pain, back pain or extremity swelling Skin/Breast: Denies: rash or new lesions Neuro: Reports: headache(s); Denies: numbness in extremities or weakness in extremities PFS ED PFSH: Medical History Bipolar affective disorder Chronic low back pain Generalized anxiety disorder Psychiatric care PTSD (post-traumatic stress disorder) Family History Mother No known health problems Social History Smoking and tobacco status: current every day smoker cigarettes Packs smoked per day: 1 Years cigarettes smoked: 36 Quit status (tobacco): has tried quititng Number of times tried to quit tobacco: 6 Second hand smoke exposure: Yes (Sometimes.) Alcohol intake: never Physical Exam Const: COMMON NORMALS: patient oriented x3, healthy appearing and alert GENERAL APPEARANCE: cooperative and comfortable HENMT: COMMON NORMALS: normocephalic HEAD & SCALP: normocephalic MOUTH: Normal oral and palatal mucosa present THROAT: posterior oropharynx normal and uvula midline Eye: COMMON NORMALS: Equal, round and reactive pupils present and EOMs intact bilaterally GENERAL EYE: appearance normal, both eyes and all related structures PUPIL: Yes Equal, round and reactive pupils present Neck/C-Spine: COMMON NORMALS: supple GENERAL: Yes normal visual inspection Lymph: LYMPHATIC: no lymphadenopathy noted Resp: COMMON NORMALS: normal respiratory effort, No retractions, No use of accessory muscles and clear to auscultation bilaterally AUSCULTATION: clear to auscultation bilaterally Cardio: COMMON NORMALS: regular rate, regular rhythm, S1 normal heart sound present, S2 normal heart sound present, No gallops present (Cardio), No clicks present (Cardio), No murmurs present (Cardio) and Peripheral pulses 2+ throughout RATE: regular rate RHYTHM: regular rhythm HEART SOUNDS: S1 normal heart sound present and S2 normal heart sound present PERIPHERAL PULSES: Peripheral pulses 2+ throughout GI: COMMON NORMALS: Normal to inspection, nondistended, normoactive bowel sounds present, Soft to palpation, non-tender and no masses PALPATION: Yes Soft to palpation : COMMON NORMALS: Yes no CVA tenderness BLADDER/KIDNEY EXAM: Yes no CVA tenderness Back/Pelvis: COMMON NORMALS: no CVA tenderness Extremity: GENERAL: Yes normal exam except as noted Neuro: COMMON NORMALS: patient oriented x3, CN's II-XII intact bilaterally, moves all extremities, no focal motor deficits and no sensory deficits noted SENSORIUM/ORIENTATION: Yes alert COORDINATION/BALANCE: [id number] test normal SPEECH: speech normal GAIT: Yes Normal gait present SENSORY EXAM: Yes extremities (intact) MOTOR EXAM: 5/5 motor strength present throughout COORDINATION: [id number] test normal Skin: COMMON NORMALS: no rashes or lesions noted GENERAL SKIN EXAM: no rashes or lesions noted and dry skin Course Vital Signs: Vital signs: Vital Signs Temperature 98.2 F 01/16/23 18:04 Pulse Rate 70 01/16/23 23:44 Respiratory Rate 16 01/16/23 23:44 Blood Pressure 127/77 01/16/23 23:44 Pulse Oximetry 97 01/16/23 23:44 Oxygen Delivery Me thod 01/16/23 23:18 MDM - Headache Medical Decision Making Patient is a 52-year-old male comes to the ED with migraine headache. Patient has a history of migraines and is currently in the process of getting set up with neurologist here at [facility]. Headache started approximately 4 days ago. It started as a typical migraine with halo type vision, headache and pain in back of head, nausea/vomiting, photophobia. Lights and noise make headache worse. Over the last 2 days his headache is gotten more severe and its moved to the front of his head bilaterally. He rates his headache currently a 9 out of 10. He states that this is the worst migraine he has ever had and its not acting like previous migraines. Denies any neurodeficits such as numbness tingling or weakness to 1 side of face or body or any other vision changes. Denies fevers, chest pain, shortness of breath, abdominal pain. Vitals are stable. Exam of patient is benign and neuro exam shows no deficits. CT of head showed no acute findings. Patient was given IV fluids, Reglan, Toradol, Decadron and Benadryl at his migraine improved. He was stable for discharge home and is currently in the process of getting set up with [facility] neurology. Follow-up with PCP in the next week for reevaluation. Return to ED precautions given. Patient understood agree with plan. Lab Data Radiology Impressions Head CT 01/16/23 22:14 IMPRESSION: No evidence of acute intracranial hemorrhage, mass effect, or midline shift. Discharge Plan Discharge Patient Disposition: Home Clinical Impression: Migraine Qualifiers: Migraine type: unspecified Status migrainosus presence: with status migrainosus Intractability: not intractable Qualified Code(s): G43.901 - Migraine, unspecified, not intractable, with status migrainosus Condition: Stable Prescriptions: No Action epinephrine [EpiPen] 0.3 mg/0.3 mL auto-injector 0.3 mg IM Q10M PRN (Reason: Allergic Reaction) Rx Instructions: for 2 doses cholecalciferol (vitamin D3) 50 mcg (2,000 unit) capsule 100 mcg PO DAILY gabapentin 600 mg tablet 600 mg PO TID cyclobenzaprine 10 mg tablet 10 mg PO TID meloxicam [Mobic] 15 mg tablet 15 mg PO DAILY docusate sodium [Colace] 100 mg capsule 100 mg PO TID aripiprazole 10 mg tablet 10 mg PO QAM Qty: 30 2RF doxepin 25 mg capsule 25 mg PO .HS Qty: 30 2RF duloxetine 30 mg capsule,delayed release(DR/EC) 30 mg PO QAM 30 Days Qty: 30 2RF hydroxyzine HCl 50 mg tablet 50 mg PO QID PRN (Reason: anxiety or insomnia) Qty: 120 2RF Lamictal 100 mg tablet 100 mg PO QAM Qty: 30 2RF prazosin 2 mg capsule 2 mg PO BEDTIME 30 Days Qty: 30 2RF trazodone 50 mg tablet 100 mg PO BEDTIME PRN (Reason: insomnia) Qty: 60 2RF quetiapine 100 mg tablet 100 mg PO BEDTIME 30 Days Qty: 30 2RF famotidine 20 mg tablet 20 mg PO BID 30 Days Qty: 60 1RF ondansetron HCl 4 mg tablet 4 mg PO Q8H oxycodone 10 mg tablet 10 mg PO TID sumatriptan 20 mg/actuation spray,non-aerosol 20 mg INTRANASAL Q2H PRN (Reason: Migraine Headache) Label Comments: As needed for migraines. Rx Instructions: administer into one nostril as a single dose; if 2nd dose needed,administer into other nostril after at least 2 hrs, NTE 2 doses (40 mg) per episode Discharge Orders: Discharge ED (Routine); Ordered 01/16/23 Ordered By: Dom Eldridge Referrals: Lizbeth Rey MD [Primary Care Provider] - Discharge Diet: Regular Discharge Activity: Increase activity as tolerated Patient Instructions: Headache - Migraine (Adult) Activity Restrictions/Additional Instructions: Follow-up with medical provider as directed. Continue taking all home medications as previously prescribed. Return to the ER or your medical provider if condition worsens. Please read and understand discharge instructions. Thank you for choosing [facility] for your healthcare needs today. Please realize this is an emergency room and that we are providing you with a medical screening exam and this may not be complete and all inclusive of all the testing and or work up that you may need to determine your ailment or severity of your illness. It is very important that you follow up as instructed or that you return to the Emergency Department should you have concerns or if your condition changes or worsens in any way. Coding Level of Care Code ED [employer] Captain for Chuckie Locke
[2023-01-16] MEDS: sodium chloride 0.9% 500 ML 999 ML IV (22:44)
[2023-01-16] MEDS: diphenhydrAMINE 50 mg/mL SDV 1mL 25 MG IVP (22:45)
[2023-01-16] MEDS: metoclopramide 5 mg/mL SDV 2 mL 10 MG IVP (22:47)
[2023-01-16] MEDS: ketorolac 30 mg/mL INJ IVP (22:50)
[2023-01-16] MEDS: dexamethasone 10 mg/mL INJ IVP (22:53)
[2023-01-16 22:55] VITALS: BP 116/86; PULSE 81; RESP 16; O2SAT 100
[2023-01-16 23:18] VITALS: BP 116/86; PULSE 74; RESP 16; O2SAT 97
[2023-01-16 23:44] VITALS: BP 127/77; PULSE 70; RESP 16; O2SAT 97
== END 2023-01-16 23:40 | disposition home or self-care (01) ==
PROVIDERS: Emergency Provider Physician Assistant; PCP Family Medicine
DX: G43.901 Migraine, unspecified, not intractable, with status migrainosus (principal); F17.210 Nicotine dependence, cigarettes, uncomplicated
CPT/HCPCS: 70450; 96361; 96374; 96375; 99285; J1100; J1200; J1885; J2765; J7040

== ENCOUNTER → 2023-01-24 10:44 | Outpatient (BNVA) | payer OTHER, SELFPAY ==
[2021-12-21 09:17] VITALS: BP 127/88; BMI 22.2
== END ==
PROVIDERS: PCP Family Medicine; Referring Provider Family Medicine; Visit Provider Specialist
DX: G43.711 Chronic migraine without aura, intractable, with status migrainosus (principal); G89.29 Other chronic pain; M54.50 Low back pain, unspecified
CPT/HCPCS: 99204

== ENCOUNTER → 2023-01-31 10:48 | Outpatient (BNVA) | payer OTHER, SELFPAY ==
[2021-12-21 09:17] VITALS: BP 127/88; BMI 22.2
== END ==
PROVIDERS: PCP Family Medicine; Visit Provider Anesthesiology Pain Medicine
DX: G89.29 Other chronic pain (principal); M54.50 Low back pain, unspecified
CPT/HCPCS: 99213

== ENCOUNTER → 2023-03-07 10:11 | Outpatient (BNVA) | payer OTHER, SELFPAY ==
[2021-12-21 09:17] VITALS: BP 127/88; BMI 22.2
== END ==
PROVIDERS: PCP Family Medicine; Visit Provider Anesthesiology Pain Medicine
DX: G89.29 Other chronic pain (principal); M54.50 Low back pain, unspecified; F31.9 Bipolar disorder, unspecified; F41.1 Generalized anxiety disorder; F43.10 Post-traumatic stress disorder, unspecified
CPT/HCPCS: 99214

== ENCOUNTER → 2023-03-29 14:43 | Outpatient (BNVA) | payer OTHER, SELFPAY ==
[2023-03-07 11:01] VITALS: BP 127/88; BMI 22.2
== END ==
PROVIDERS: PCP Family Medicine; Visit Provider Anesthesiology Pain Medicine
DX: G89.29 Other chronic pain (principal); M47.816 Spondylosis without myelopathy or radiculopathy, lumbar region
CPT/HCPCS: 64493; 64494; 64495; J3490

== ENCOUNTER → 2023-05-11 11:45 | Outpatient (BNVA) | payer OTHER, SELFPAY ==
[2023-03-07 11:01] VITALS: BP 127/88; BMI 22.2
== END ==
PROVIDERS: PCP Family Medicine; Visit Provider Specialist
DX: G43.711 Chronic migraine without aura, intractable, with status migrainosus (principal)
CPT/HCPCS: G0463

== ENCOUNTER 2023-12-25 11:40 | Outpatient (CLI) | payer OTHER, SELFPAY ==
[2023-03-07 11:01] VITALS: BP 127/88; BMI 22.2
--- NOTE | 2023-12-25 11:51 | MR_ITS ---
WS: [id number] MRI CERVICAL SPINE NONCONTRAST TECHNIQUE: Sagittal T1, T2 and STIR imaging. Axial T2, gradient, and fiesta imaging. CLINICAL INFORMATION: ABNORMAL XRAY/CHRONIC C SPINE PAIN W/CHRONIC HEADACHES COMPARISON: None. FINDINGS: Mild cervical curve. No high-grade central canal stenosis. Cord signal is normal. Mild disc bulging w orse at C5-C6 and C6-C7. C2-C3: Mild facet arthropathy. Spinal canal and foramen are patent. C3-C4: No significant disc bulging. Mild facet arthropathy. Spinal canal and foramen are patent. C4-C5: Mild disc bulging with osteophytic ridging. Moderate facet arthropathy. Spinal canal and lani en are patent. C5-C6: Mild disc bulging with osteophytic ridging. Slight effacement of the ventral thecal sac. Moder ate facet arthropathy. Moderate LEFT greater than RIGHT bony foraminal narrowing. C6-C7: Disc osteophyte complex with endplate ridging. Severe bilateral bony foraminal narrowing. Spin al canal is patent. C7-T1: No significant disc bulging. Spinal canal and foramen are patent. Visualized brain stem structures: Normal. Prevertebral soft tissues: Normal. IMPRESSION: 1. No high-grade central canal stenosis. Cord signal is normal. 2. Moderate bilateral C5-C6 and severe bilateral C6-7 bony foraminal narrowing mainly due to osteoph ytic ridging and uncovertebral joint hypertrophy. 3. Moderate facet arthropathy worse at C4-C5 C5-C6 and C6-C7.
== END 2023-12-25 11:41 | disposition home or self-care (01) ==
LOC: RAD 11:41
PROVIDERS: PCP Family Medicine; Visit Provider Nurse Practitioner Family
DX: M50.30 Other cervical disc degeneration, unspecified cervical region (principal)
CPT/HCPCS: 72141

== ENCOUNTER 2023-12-27 11:59 | Outpatient (CLI) | payer OTHER, SELFPAY ==
[2023-03-07 11:01] VITALS: BP 127/88; BMI 22.2
--- NOTE | 2023-12-27 12:21 | MR_ITS ---
WS: [id number] MRI LUMBAR SPINE NONCONTRAST TECHNIQUE: Sagittal T1, T2 and STIR imaging. Axial T1 and T2 imaging. CLINICAL INFORMATION: LUMBAR PAIN RADIATING TO BOTH LOWER EXTREMITIES COMPARISON: Outside MRI 12/05/2022 FINDINGS: No lumbar curve. No acute compression. No high-grade central canal stenosis. L1-L2: Mild facet arthropathy. Spinal canal and foramen are patent. L2-L3: Minimal annular bulging. Mild facet arthropathy. Spinal canal and foramen are patent. L3-L4: Mild annular bulging. Mild facet arthropathy. Spinal canal and foramen are patent. L4-L5: Mild annular bulging. Moderate facet arthropathy. Spinal canal is patent. Slight RIGHT proxima l foraminal narrowing. LEFT foramen is patent. L5-S1: Disc osteophyte complex with endplate ridging. Slight effacement of the ventral thecal sac. Sl ight contact of the traversing RIGHT S1 nerve root. Slight encroachment on the exiting RIGHT L5 nerve root. LEFT foramen is patent. Overall no significant changes compared to the outside examination. Visualized pelvic bony structures: Normal. Paravertebral soft tissues: Normal. IMPRESSION: 1. Mild lumbar curve. No acute compression. No high-grade central canal stenosis. 2. Slight RIGHT proximal L4-5 foraminal narrowing. 3. Disc osteophyte complex L5-S1 eccentric to the RIGHT with slight encroachment on the traversing R IGHT S1 and exiting RIGHT L5 nerve roots. 4. Moderate facet arthropathy L4-L5 and L5-S1.
== END 2023-12-27 12:00 | disposition home or self-care (01) ==
LOC: RAD 12:00
PROVIDERS: PCP Family Medicine; Visit Provider Nurse Practitioner Family
DX: M50.30 Other cervical disc degeneration, unspecified cervical region (principal); G43.909 Migraine, unspecified, not intractable, without status migrainosus; J32.0 Chronic maxillary sinusitis
CPT/HCPCS: 72148